=== PATIENT | female | born 1975 | race Caucasian/White ===

== ENCOUNTER → 2021-01-13 | Outpatient (CLI) | payer MEDICARE ==
[~2021-01-13] MED LIST: CATAPRES 0.1MG0.1 MG PO; CELEXA40 MG PO; FERROUS SULFAT325 M2 PO; FLEXERIL 10 MG10 MG PO; GEODON80 MG PO; GLUCOPHAGE 500500 MG PO; IBUPROFEN600 MG PO; LASIX40 MG PO; LIPITOR TAB 2020 MG PO; LISINOPRIL20 MG PO; LOPRESSOR 25 MG25 MG PO; NORVASC 5 MG TAB5 MG PO; OXYCODONE HCL10 MG PO; ZANAFLEX4 MG PO; ZESTRIL5 MG PO
== END ==
LOC: KOH-I 09:45
DX: R10.9 Unspecified abdominal pain (principal); K76.0 Fatty (change of) liver, not elsewhere classified
CPT/HCPCS: 76705

== ENCOUNTER → 2021-03-24 | Outpatient (CLI) | payer MEDICARE | LOC: CT 10:00 | DX: R06.00 Dyspnea, unspecified (principal); R59.0 Localized enlarged lymph nodes; E27.8 Other specified disorders of adrenal gland; J98.4 Other disorders of lung | CPT/HCPCS: 36415; 71270; 82565; Q9967 ==

== ENCOUNTER → 2021-07-07 | Outpatient (CLI) | payer MEDICARE | LOC: KOH-I 10:15 | DX: M25.521 Pain in right elbow (principal) | CPT/HCPCS: 73070 ==

== ENCOUNTER → 2022-01-31 | Outpatient (CLI) | payer MEDICARE | LOC: HEART 5 09:19 | DX: R06.02 Shortness of breath (principal); R00.0 Tachycardia, unspecified; I11.9 Hypertensive heart disease without heart failure | CPT/HCPCS: 93306 ==